=== PATIENT | female | born 1990 | race Caucasian/White ===

== ENCOUNTER → 2017-03-18 | Outpatient (CLI) | payer BC ==
[~2017-03-18] MED LIST: Celexa20 MG PO; IBUP800; LORA.5 PO
[2017-03-19 14:42] LABS: Source Vaginal/Cervical
== END | disposition home or self-care (01) ==
LOC: LAB 11:12
PROVIDERS: Obstetrics & Gynecology
DX: Z36.89 Encounter for other specified antenatal screening (principal)
CPT/HCPCS: 87491; 87591; G0123

== ENCOUNTER → 2017-08-24 | Outpatient (CLI) | payer BC ==
[~2017-08-24] MED LIST changes: -IBUP800
== END | disposition home or self-care (01) ==
LOC: LAB 10:39 → LAB SHORT 10:39
DX: Z34.00 Encounter for supervision of normal first pregnancy, unspecified trimester (principal)
CPT/HCPCS: 87081; 87653

== ENCOUNTER → 2019-04-18 | Outpatient (CLI) | payer OTHER, BC ==
[~2019-04-18] MED LIST changes: +IBUP800
[2019-04-18 15:50] LABS: Appearance, Urine Clear (Clear); Bilirubin, Urine Neg (Neg); Blood, Urine Neg (Neg); Color, Urine Yellow (P-Yellow); Glucose Qualitative, Urine Neg (Neg); Ketones, Urine Neg (Neg); Leukocyte Esterase, Urine 1+ (Neg); Nitrite, Urine Neg (Neg); Protein, Urine Neg (Neg); Urobilinogen, Urine NORM (Normal)
[2019-04-18 15:57] LABS: Bacteria Mod /hpf; Red Blood Cells, Urine 0-2 /hpf (0-2); Squamous Epithelial Cells Few /hpf (Few); White Blood Cells, Urine 0-2 /hpf (0-5)
== END | disposition home or self-care (01) ==
LOC: LAB 14:50 → LAB SHORT 14:50
PROVIDERS: Obstetrics & Gynecology
DX: Z34.81 Encounter for supervision of other normal pregnancy, first trimester (principal)
CPT/HCPCS: 81001; 87086

== ENCOUNTER → 2019-10-19 | Outpatient (CLI) | payer OTHER | END | disposition home or self-care (01) | LOC: LAB SHORT 10:00 → LAB 10:00 | DX: O24.419 Gestational diabetes mellitus in pregnancy, unspecified control (principal); O09.893 Supervision of other high risk pregnancies, third trimester | CPT/HCPCS: 87081; 87147; 87184; 87653 ==

== ENCOUNTER → 2019-12-04 | Outpatient (CLI) | payer OTHER ==
[~2019-12-04] MED LIST changes: +ESCI20 PO; +PRENATAL TABLE1 EAC2 PO
== END | disposition home or self-care (01) ==
LOC: LAB SHORT 16:07 → LAB 16:07
DX: R39.15 Urgency of urination (principal)
CPT/HCPCS: 87086; 87147

== ENCOUNTER 2022-04-08 19:42 | Emergency (ER) | payer OTHER ==
[~2022-04-08] VITALS: Ht 157.5 cm; Wt 68.0 kg
[2022-04-08 20:03] LABS: BASOPHILS ABSOLUTE AUTO 0.05 K/mm3 (0.00-0.23); BASOPHILS PERCENT AUTO 1 % (0-2); EOSINOPHILS ABSOLUTE AUTO 0.03 K/mm3 (0.00-0.68); EOSINOPHILS PERCENT AUTO 0 % (0-6); Hematocrit 37.5 % (33.0-51.0); Hemoglobin 13.5 g/dL (11.5-16.0); IMMATURE GRAN ABSOLUTE AUTO 0.02 K/mm3 (0.00-0.10); IMMATURE GRAN PERCENT AUTO 0 % (0-1); LYMPHOCYTES ABSOLUTE AUTO 1.77 K/mm3 (0.84-5.20); LYMPHOCYTES PERCENT AUTO 26 % (21-46); MONOCYTES ABSOLUTE AUTO 0.55 K/mm3 (0.16-1.47); MONOCYTES PERCENT AUTO 8 % (4-13); Mean Corpuscular HGB 31.1 pg (26.0-34.0); Mean Corpuscular Volume 86 fL (80-100); Mean Platelet Volume 11.6 fL (9.1-12.4); NEUTROPHILS ABSOLUTE AUTO 4.44 K/mm3 (1.96-9.15); NEUTROPHILS PERCENT AUTO 65 % (41-73); Platelet Count 207 K/mm3 (150-400); RDW Coefficient Variation 11.9 % (11.7-14.2); RDW Standard Deviation 38.1 fL (35.1-46.3); Red Blood Cell Count 4.34 M/mm3 (3.80-5.20); White Blood Cell Count 6.86 K/mm3 (4.00-11.30)
[2022-04-08] MEDS ORDERED: BUPROPION XL450 M1 PO (20:21)
[2022-04-08 20:32] LABS: Albumin, Blood 4.1 g/dL (3.4-5.0); Albumin/Globulin Ratio 1.2 (0.8-1.8); Bilirubin, Total 0.3 mg/dL (0.1-1.0); Calcium, Blood 9.3 mg/dL (8.5-10.1); Creatinine, Blood 0.83 mg/dL (0.40-1.00); Globulin, Blood 3.5 g/dL (2.2-4.0); Potassium, Blood 3.4 mmol/L (3.5-5.5); Total Protein, Blood 7.6 g/dL (6.4-8.2)
[2022-04-08 21:10] LABS: Thyroxine (T4) 9.3 ug/dL (4.8-13.9)
[2022-04-08 21:14] LABS: Thyroid Stimulating Hormone 1.94 uIU/mL (0.360-4.800)
== END 2022-04-08 21:17 | disposition home or self-care (01) ==
LOC: ER 19:42
PROVIDERS: Student in an Organized Health Care Education/Training Program
DX: R00.2 Palpitations (principal); R06.02 Shortness of breath; Z79.899 Other long term (current) drug therapy
CPT/HCPCS: 36415; 71046; 80053; 84436; 84443; 84484; 85025; 93005; 93010; 99284-25

== ENCOUNTER 2022-09-18 17:59 | Emergency (ER) | payer OTHER, BC ==
[~2022-09-18 17:59] MED LIST changes: +BUPROPION XL450 M1 PO
[2022-09-18 18:31] LABS: BASOPHILS ABSOLUTE AUTO 0.03 K/mm3 (0.00-0.23); BASOPHILS PERCENT AUTO 0 % (0-2); EOSINOPHILS ABSOLUTE AUTO 0.05 K/mm3 (0.00-0.68); EOSINOPHILS PERCENT AUTO 0 % (0-6); Hematocrit 36.5 % (33.0-51.0); Hemoglobin 12.5 g/dL (11.5-16.0); IMMATURE GRAN ABSOLUTE AUTO 0.04 K/mm3 (0.00-0.10); IMMATURE GRAN PERCENT AUTO 0 % (0-1); LYMPHOCYTES ABSOLUTE AUTO 2.09 K/mm3 (0.84-5.20); LYMPHOCYTES PERCENT AUTO 14 % (21-46); MONOCYTES ABSOLUTE AUTO 1.04 K/mm3 (0.16-1.47); MONOCYTES PERCENT AUTO 7 % (4-13); Mean Corpuscular HGB Conc 34.2 g/dL (31.5-36.5); Mean Corpuscular Volume 91 fL (80-100); Mean Platelet Volume 11.3 fL (9.1-12.4); NEUTROPHILS ABSOLUTE AUTO 11.86 K/mm3 (1.96-9.15); NEUTROPHILS PERCENT AUTO 79 % (41-73); Platelet Count 248 K/mm3 (150-400); RDW Coefficient Variation 11.5 % (11.7-14.2); RDW Standard Deviation 38.4 fL (35.1-46.3); Red Blood Cell Count 4.03 M/mm3 (3.80-5.20); White Blood Cell Count 15.11 K/mm3 (4.00-11.30)
[2022-09-18 18:49] LABS: Albumin, Blood 3.5 g/dL (3.4-5.0); Albumin/Globulin Ratio 1.1 (0.8-1.8); Bilirubin, Total 0.3 mg/dL (0.1-1.0); Bun/Creatinine Ratio 14.5 (12.0-20.0); Calcium, Blood 7.7 mg/dL (8.5-10.1); Creatinine, Blood 0.89 mg/dL (0.40-1.00); Globulin, Blood 3.1 g/dL (2.2-4.0); Total Protein, Blood 6.6 g/dL (6.4-8.2)
== END 2022-09-18 19:50 | disposition short-term general hospital (02) ==
LOC: ER 17:59
PROVIDERS: Student in an Organized Health Care Education/Training Program
DX: S01.85XA Open bite of other part of head, initial encounter (principal); S11.85XA Open bite of other specified part of neck, initial encounter; S01.551A Open bite of lip, initial encounter; S01.451A Open bite of right cheek and temporomandibular area, initial encounter; S81.852A Open bite, left lower leg, initial encounter; S91.052A Open bite, left ankle, initial encounter; S71.151A Open bite, right thigh, initial encounter; S41.151A Open bite of right upper arm, initial encounter; S41.152A Open bite of left upper arm, initial encounter; S51.851A Open bite of right forearm, initial encounter; S41.052A Open bite of left shoulder, initial encounter; S21.95XA Open bite of unspecified part of thorax, initial encounter; Z79.899 Other long term (current) drug therapy; Z88.0 Allergy status to penicillin; Z23 Encounter for immunization; W54.0XXA Bitten by dog, initial encounter
CPT/HCPCS: 70450; 70498; 80053; 84703; 85025; 86850; 86900; 86901; 90471; 90714; 90715; 96361; 96365; 96367; 96375; 99285-25; J0736; J0744; J1170; J3010; J7120; Q9967

== ENCOUNTER 2022-10-12 01:31 | Day surgery (SDC) | payer OTHER, BC | END 2022-10-12 22:53 | disposition home or self-care (01) | LOC: WOUND 01:31 | DX: S91.001D Unspecified open wound, right ankle, subsequent encounter (principal); W54.0XXD Bitten by dog, subsequent encounter; Z88.0 Allergy status to penicillin | CPT/HCPCS: A9270; G0463 ==

== ENCOUNTER 2022-10-20 08:43 | Day surgery (SDC) | payer BC, OTHER | END 2022-10-20 22:47 | disposition home or self-care (01) | LOC: WOUND 08:43 | DX: S91.001D Unspecified open wound, right ankle, subsequent encounter (principal); W54.0XXD Bitten by dog, subsequent encounter | CPT/HCPCS: G0463 ==

== ENCOUNTER 2022-10-28 04:38 | Day surgery (SDC) | payer BC, OTHER | END 2022-10-28 22:51 | disposition home or self-care (01) | LOC: WOUND 04:38 | DX: S91.051D Open bite, right ankle, subsequent encounter (principal); S81.851D Open bite, right lower leg, subsequent encounter; W54.0XXD Bitten by dog, subsequent encounter | CPT/HCPCS: A9270 ==

== ENCOUNTER 2022-11-23 01:16 | Day surgery (SDC) | payer BC, OTHER | END 2022-11-23 23:08 | disposition home or self-care (01) | LOC: WOUND 01:16 | DX: S91.051D Open bite, right ankle, subsequent encounter (principal); W54.0XXD Bitten by dog, subsequent encounter | CPT/HCPCS: G0463 ==

== ENCOUNTER 2022-12-10 03:17 | Day surgery (SDC) | payer BC, OTHER | END 2022-12-10 22:34 | disposition home or self-care (01) | LOC: WOUND 03:17 | DX: S91.051D Open bite, right ankle, subsequent encounter (principal); W54.0XXD Bitten by dog, subsequent encounter | CPT/HCPCS: G0463 ==